=== PATIENT | male | born 1975 | race Caucasian/White ===

== ENCOUNTER → 2017-04-01 | Outpatient (CLI) | payer OTHER | LOC: OD 15:46 | PROVIDERS: ATTEND Specialist | DX: C25.0 Malignant neoplasm of head of pancreas (principal); R10.9 Unspecified abdominal pain | CPT/HCPCS: 36415; 86301 ==

== ENCOUNTER → 2017-04-15 | Outpatient (CLI) | payer OTHER ==
--- NOTE | 2017-04-15 13:33 | RADIOLOGY REPORT (SQ) ---
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 TECHNIQUE: CT scanogram of the bilateral lower extremities is performed including pelvis to ankles. Measurements of femur, tibia, and entire lower extremities performed by the radiologist and saved to PACS. All CT scanners at this facility use dose modulation, iterative reconstruction, and/or weight based d osing when appropriate to reduce radiation dose to as low as reasonably achievable (ALARA). [facility]: Dose Right [facility]: CareDose [facility]: Dose Right [facility]: Teradose 4D [facility]: [employer] RADIATION DOSE: Less than 0.1 mGy mGy. LIMITATIONS: None. FINDINGS: RIGHT: FEMUR: 45.5 cm. TIBIA: 35.1 cm. TOTAL RIGHT LOWER EXTREMITY LENGTH: 80.9 cm. LEFT: FEMUR: 45.9 cm. TIBIA: 35.4 cm. TOTAL LEFT LOWER EXTREMITY LENGTH: 81.8 cm. IMPRESSION: LEG LENGTH MEASUREMENTS DETAILED ABOVE. TECHNICAL DOCUMENTATION: JOB ID: [id number] Quality ID # [id number]: Final reports with documentation of one or more dose reduction techniques (e.g., Au tomated exposure control, adjustment of the mA and/or kV according to patient size, use of iterative reconstruction technique) 2010 [employer]- All Rights Reserved
== END ==
LOC: RAD 12:31
PROVIDERS: ATTEND Podiatrist Foot & Ankle Surgery
DX: Q72.819 Congenital shortening of unspecified lower limb (principal)
CPT/HCPCS: 77073

== ENCOUNTER → 2017-04-15 | Outpatient (CLI) | payer OTHER ==
[2017-04-15 14:53] LABS: ABSOLUTE EOSINOPHILS # (AUTO) 0.6 10^3/uL (0.0-0.6); ABSOLUTE LYMPHOCYTES (AUTO) 3.2 10^3/uL (0.5-4.7); ABSOLUTE MONOCYTES (AUTO) 0.5 10^3/uL (0.1-1.4); ABSOLUTE NEUT (AUTO) 5.9 10^3/uL (1.7-8.2); BASOPHILS % (AUTO) 0.5 % (0-2); EOSINOPHILS % (AUTO) 6.2 % (0-6); HEMATOCRIT 43.7 % (37.9-51.0); HEMOGLOBIN 15.9 g/dL (13.5-17.0); LYMPHOCYTES % (AUTO) 31.2 % (13-45); MEAN CORPUSCULAR HGB CONC 36.3 g/dL (32.0-36.0); MEAN CORPUSCULAR VOLUME 91 fl (80-97); MONOCYTES % (AUTO) 4.5 % (3-13); RED BLOOD COUNT 4.82 10^6/uL (4.35-5.55); RED CELL DISTRIBUTION WIDTH 13.5 % (11.5-14.0); SEGMENTED NEUTROPHILS % (AUTO) 57.6 % (42-78); WHITE BLOOD COUNT 10.3 10^3/uL (4.0-10.5)
[2017-04-15 15:21] LABS: ALANINE AMINOTRANSFERASE 99 U/L (21-72); ALBUMIN 4.3 g/dL (3.5-5.0); ALKALINE PHOSPHATASE 148 U/L (38-126); AMYLASE 43 U/L (30-110); ANION GAP 10 (5-19); ASPARTATE AMINO TRANSFERASE 59 U/L (17-59); BILIRUBIN,DIRECT 0.4 mg/dL (0.0-0.4); BILIRUBIN,TOTAL 0.5 mg/dL (0.2-1.3); BLOOD UREA NITROGEN 12 mg/dL (7-20); CALCIUM 9.4 mg/dL (8.4-10.2); CARBON DIOXIDE 26 mmol/L (22-30); CHLORIDE 106 mmol/L (98-107); CREATININE RESULT 0.77 mg/dL (0.52-1.25); GLUCOSE 105 mg/dL (75-110); LIPASE 69.3 U/L (23-300); POTASSIUM 4.7 mmol/L (3.6-5.0); TOTAL PROTEIN 6.9 g/dL (6.3-8.2)
== END ==
LOC: OD 13:34
PROVIDERS: ATTEND Specialist
DX: R10.9 Unspecified abdominal pain (principal); D50.9 Iron deficiency anemia, unspecified
CPT/HCPCS: 36415; 80053; 82150; 83690; 85025

== ENCOUNTER 2017-05-05 09:40 | Day surgery (SDC) | payer OTHER ==
--- NOTE | 2017-04-29 13:44 | HISTORY AND PHYSICAL E ---
History and Physical NAME: KUMAR KAPOOR : 1975 AGE: 41Y ADMITTED: 05/05/2017 ROOM: CHIEF COMPLAINT: Abdominal pain. HISTORY: Patient presented with chief complaint of abdominal pain for colon exam. I saw the patient in March for abdominal pain, epigastric. SOCIAL HISTORY: Smokes rarely. Drinks rarely. PAST MEDICAL HISTORY: Upper endoscopy done November 2016, showed no ulcers. He did have fusion of cervical spine C6-C7, left shoulder surgery. He did have lipoma of right wrist. REVIEW OF SYSTEMS: RESPIRATORY: Sleep apnea, uses CPAP. CARDIAC: Negative. ENDOCRINE: Negative. GASTROINTESTINAL: Epigastric abdominal pain, reflux. HEMATOLOGY/ONCOLOGY: Negative. FAMILY HISTORY: Father had AML. Mom is alive. His dad had muscular disease. PHYSICAL EXAMINATION: VITAL SIGNS: Blood pressure is 120/70, pulse 80, respirations 18, temp is 98. HEENT: Normal. ABDOMEN: Soft. NEUROLOGIC: Exam is negative. DIAGNOSTICS: The patient did have abnormality of liver enzymes. Patient does have high alkaline phosphatase of 148 and SGPT 99, white count 10, hemoglobin 15. Patient did have the following CT showing questioned stone in left kidney, 15 mm density in the right kidney, most likely represents small cyst. Upper abdomen organ unremarkable. Ultrasound of the abdomen shows minimal sludge. Liver shows some echogenicity, may be very mild fatty infiltrate, otherwise negative. CA19-9 normal. CONCLUSION: Abdominal pain. PLAN: Upper scope, admit on 05/05/2017. DICTATING PHYSICIAN: CHARLEEN TAYLOR M.D. [id number] [id number] Y#: [id number] ID: [id number] JOB#: [id number] ACCT: [id number] cc:[facility] CHARLEEN TAYLOR M.D. >
[~2017-05-05 09:40] MED LIST: EPINEPHRINE INJ 1 MG/10 ML DISP.SYRIN ONE; FENTANYL CITRATE INJ/PF 100 MCG/2 ML AMPUL ONE; FLUMAZENIL INJ 0.5 MG/5 ML VIAL ONE; GLUCAGON,HUMAN RECOMB 1 MG INJ ONE; GLYCOPYRROLATE INJ 0.4 MG/2 ML VIAL ONE; LIDOCAINE 2% JELLY 30 ML TUBE ONE; NALOXONE HCL INJ/PF 0.4 MG/1 ML SDV ONE
[2017-05-05] MEDS: ONDANSETRON HCL INJ/PF 4 MG/2 ML SDV ONE ×2 (10:07→10:24)
[2017-05-05] MEDS: MIDAZOLAM 2 MG/2 ML INJ ONE ×2 (10:11→10:17)
[2017-05-05] MEDS ORDERED: ONDANSETRON HCL INJ/PF 4 MG/2 ML SDV ONE (10:27)
[2017-05-05 11:20] LABS: ABSOLUTE BASOPHILS # (AUTO) 0.1 10^3/uL (0.0-0.2); ABSOLUTE EOSINOPHILS # (AUTO) 0.4 10^3/uL (0.0-0.6); ABSOLUTE LYMPHOCYTES (AUTO) 2.2 10^3/uL (0.5-4.7); ABSOLUTE MONOCYTES (AUTO) 0.7 10^3/uL (0.1-1.4); ABSOLUTE NEUT (AUTO) 11.4 10^3/uL (1.7-8.2); BASOPHILS % (AUTO) 0.5 % (0-2); EOSINOPHILS % (AUTO) 2.8 % (0-6); HEMATOCRIT 44.5 % (37.9-51.0); HEMOGLOBIN 15.8 g/dL (13.5-17.0); HGB HCT DIFFERENCE 2.9; LYMPHOCYTES % (AUTO) 14.9 % (13-45); MEAN CORPUSCULAR HEMOGLOBIN 32.6 pg (27.0-33.4); MEAN CORPUSCULAR HGB CONC 35.5 g/dL (32.0-36.0); MEAN CORPUSCULAR VOLUME 92 fl (80-97); MONOCYTES % (AUTO) 4.7 % (3-13); RED BLOOD COUNT 4.85 10^6/uL (4.35-5.55); RED CELL DISTRIBUTION WIDTH 13.2 % (11.5-14.0); SEGMENTED NEUTROPHILS % (AUTO) 77.1 % (42-78); WHITE BLOOD COUNT 14.8 10^3/uL (4.0-10.5)
[2017-05-05 11:27] VITALS: BP 91/59
[2017-05-05 11:50] LABS: ALANINE AMINOTRANSFERASE 37 U/L (21-72); ALBUMIN 4.3 g/dL (3.5-5.0); ALKALINE PHOSPHATASE 107 U/L (38-126); ANION GAP 9 (5-19); ASPARTATE AMINO TRANSFERASE 26 U/L (17-59); BILIRUBIN,DIRECT 0.4 mg/dL (0.0-0.4); BLOOD UREA NITROGEN 13 mg/dL (7-20); C-REACTIVE PROTEIN 7.6 mg/L (<10.0); CALCIUM 9.5 mg/dL (8.4-10.2); CARBON DIOXIDE 28 mmol/L (22-30); CHLORIDE 104 mmol/L (98-107); CREATININE RESULT 0.78 mg/dL (0.52-1.25); TOTAL PROTEIN 6.7 g/dL (6.3-8.2)
[2017-05-05 12:00] LABS: ERYTHROCYTE SEDIMENTATION RATE 11 mm/hr (0-15); GLUCOSE 37 mg/dL (75-110)
--- NOTE | 2017-05-05 12:15 | OPERATIVE REPORT E ---
Operative Report NAME: KUMAR KAPOOR : 1975 AGE: 41Y DATE OF SURGERY: 05/05/2017 ROOM: PREOPERATIVE DIAGNOSIS: Abdominal pain. POSTOPERATIVE DIAGNOSIS: External hemorrhoids. PROCEDURE: Colonoscopy. SURGEON: CHARLEEN TAYLOR M.D. TISSUE REMOVED OR ALTERED: None. ANESTHESIA: Versed, fentanyl combination, versed 8, fentanyl 100, versed 4. DESCRIPTION: Rectal exam: Prostate normal. External hemorrhoids mild. Sigmoid descending colon normal. Transverse colon normal. Ascending colon normal. Cecum normal. Scope withdrawn from cecum, ascending, transverse, descending, sigmoid all the way to the rectum. CONCLUSION: Essentially no polyps. Mild external hemorrhoids. Abdominal pain, etiology undetermined. Patient tolerated the procedure well, discharged to his room in stable condition. DICTATING PHYSICIAN: CHARLEEN TAYLOR M.D. [id number] [id number] PHY#: [id number] ID: [id number] JOB#: [id number] ACCT: [id number] cc:CHARLEEN TAYLOR M.D. >
--- NOTE | 2017-05-05 13:51 | DISCHARGE SUMMARY E ---
Discharge Summary NAME: KUMAR KAPOOR : 1975 AGE: 41Y ADMITTED: 05/05/2017 DISCHARGED: 05/05/2017 HISTORY: The patient is 41, presented with abdominal pain, abnormal liver functions. Colonoscopy today shows no polyps, mild external hemorrhoids. DISCHARGE PLAN: Repeat liver functions. Patient to see us in the office in the next few days. Patient does have history of sleep apnea, abdominal pain, reflux. DICTATING PHYSICIAN: CHARLEEN TAYLOR M.D. [id number] 1134 Y#: [id number] ID: [id number] JOB#: [id number] ACCT: [id number] cc:CHARLEEN TAYLOR M.D. >
== END 2017-05-05 11:27 | disposition home or self-care (01) ==
LOC: END 09:40
PROVIDERS: ATTEND Specialist
PROC: 0DJD8ZZ Inspection of Lower Intestinal Tract, Via Natural or Artificial Opening Endoscopic (ICD-10-PCS; principal; 2017-05-05 10:00)
DX: K64.4 Residual hemorrhoidal skin tags (principal); G47.30 Sleep apnea, unspecified
CPT/HCPCS: 45378; 36415; 85025; 85652; 86140; 80076; 80048; 83915; J2250; J3010; J1610; J2405; J0171; J2310; J3490

== ENCOUNTER → 2017-05-06 | Outpatient (CLI) | payer OTHER ==
[2017-05-07 09:56] LABS: INSULIN 9.2 uIU/mL (2.6-24.9)
[2017-05-08 07:06] LABS: C-PEPTIDE 2.6 ng/mL (1.1-4.4)
== END ==
LOC: OD 09:23
PROVIDERS: ATTEND Specialist
DX: E23.2 Diabetes insipidus (principal)
CPT/HCPCS: 36415; 82947; 83036; 83525; 84681

== ENCOUNTER → 2017-05-20 | Outpatient (CLI) | payer OTHER ==
--- NOTE | 2017-05-20 15:16 | RADIOLOGY REPORT (SQ) ---
EXAM DESCRIPTION: NM HIDA SCAN WITH CCK COMPLETED DATE/TIME: 05/20/2017 2:57 pm REASON FOR STUDY: ABDNOMINAL PAIN (R10.9) R10.9 UNSPECIFIED ABDOMINAL PAIN COMPARISON: None. RADIONUCLIDE AND DOSE: DOSAGE RADIONUCLIDE: 5.38 millicuries Tc99m Mebrofenin. DOSAGE CCK: 1.6 micrograms. DOSAGE MORPHINE: Not required. The route of agent administration: Intravenous TECHNIQUE: Serial imaging right upper quadrant up to 60 minutes following injection of radionuclide. CCK injected after gallbladder visualized. LIMITATIONS: None. FINDINGS: LIVER: Normal visualization without areas of photopenia. INTRAHEPATIC BILE DUCTS: Normal size and no delay in visualization. COMMON BILE DUCT: Normal without dilatation. GALLBLADDER: Normal visualization. Calculated ejection fraction of 59%. Normal range is greater th an 35%. PHYSICAL RESPONSE: Patients presenting complaint was not reproduced. OTHER: No other significant finding. IMPRESSION: NORMAL STUDY WITHOUT CYSTIC OR COMMON DUCT OBSTRUCTION. NORMAL GALLBLADDER EJECTION FRA CTION. NO EVIDENCE FOR BILIARY DYSKINESIS. TECHNICAL DOCUMENTATION: JOB ID: [id number] [employer]- All Rights Reserved
== END ==
LOC: RAD 12:45
PROVIDERS: ATTEND Specialist
DX: R10.9 Unspecified abdominal pain (principal)
CPT/HCPCS: 78227; A9537; Q9969; J2805